=== PATIENT | female | born 1970 | race Hispanic/Latino ===

== ENCOUNTER 2024-10-05 12:08 | Inpatient (IN) | payer OTHER ==
[~2024-10-05] VITALS: Ht 165.1 cm; Wt 107.6 kg
[2024-10-05] MEDS: metoPROLOL tartRATE 1 MG/ML 5ML VIAL IV ONE ×3 (13:30→14:02)
[2024-10-05] MEDS ORDERED: metoPROLOL tartRATE 1 MG/ML 5ML VIAL IV ONE (13:49)
--- NOTE | 2024-10-05 15:25 | ERN ---
General Chief Complaint: Palpitations Stated Complaint: PALPITATIONS, AFIB Time Seen by MD: 15:20 History of Present Illness Initial Comments 52-year-old female who presents for atrial fibrillation and palpitations. Patient reports for the last few years he was had episodes of on and off atrial fibrillation. It usually lasts a day or so. She reports that she went to bed last night and normal state of health. Throughout the night and this morning she was having episodes of palpitations, and she does have a monitor that is showing episodes of atrial fibrillation. Rate is ranging from the 120s to 150s according to the patient. She denies any dizziness or chest pain. Patient takes metoprolol tartrate 50 mg b.i.d. as well as 81 mg of aspirin daily. She sees Dr. Venegas. She denies any other symptoms. Allergies: Coded Allergies: acetaminophen (Unverified Allergy, Unknown, 10/05/24) hydrocodone (Unverified Allergy, Unknown, 10/05/24) morphine (Unverified Allergy, Unknown, 10/05/24) oxycodone (Unverified Allergy, Unknown, 10/05/24) Past Medical History Past Medical History: A-Fib, Heart Disease, Hypertension Medical History Other: ULCERATIVE COLITIS Past Surgical History: Hysterectomy, Surgical History Other: HERNIA ROS Dictation CONSTITUTIONAL: No chills, no fever, no weakness, no diaphoresis, no malaise. HEAD/FACE: No signs of trauma. EENT: No eye pain, no blurred vision, no tearing, no double vision, no ear pain, no ear discharge, no nose pain, no nasal congestion, no throat pain, no throat swelling, no mouth pain. RESPIRATORY: No cough, no orthopnea, no SOB, no stridor, no wheezing. CARDIOVASCULAR: Palpitations GASTROINTESTINAL/ABDOMINAL: No abdominal pain, no constipation, no diarrhea, no nausea, no vomiting. GENITOURINARY: No abnormal discharge, no dysuria, no frequent urination, no hematuria. No complaints of pain in the genitals. MUSCULOSKELETAL: No back pain, no gout, no joint pain, no joint swelling, no muscle pain, no muscle stiffness, no neck pain. INTEGUMENTARY: No change in color, no change in hair/nails, no dryness, no lesion, no lumps, no rash. NEUROLOGICAL/PSYCH: No anxiety, not depressed, no emotional problem, no headache, no numbness, no pre-existing deficit, no history of seizures, no tremors, no weakness. HEMATOLOGIC/LYMPHATIC: Not anemic, no history of blood clots, no apparent bleeding, no bruising, glands not swollen. All Systems Negative, Except as Noted. Physical Exam Physical Exam Dictation VITAL SIGNS: Reviewed. GENERAL APPEARANCE: Alert, oriented x3, no acute distress, obese. HEAD AND FACE: Non-traumatic. EYES: PERRL, pink conjunctivas, eyelid no trauma, anterior chamber clear. EARS: Pinnas intact and no signs of trauma or erythema. Ear canals clear and no discharge. TMs no erythema. NOSE: No discharge, no bleeding. OROPHARYNX: Mouth normal, teeth no caries, tongue pink. Pharynx clear, no erythema. Tonsils no exudates, no abscesses noted. Mucous membrane moist. NECK: Supple, non-tender, no thyromegaly, no masses, no JVD, no bruits. BREAST: Deferred. CHEST: No tenderness, no crepitus, no paradoxical movement, no retractions. LUNGS: Clear, well-ventilated, symmetric, no rales, no wheezing, no rhonchi, no stridor, good breath sounds bilaterally. HEART: Regular rate, regular rhythm, no murmur, no gallops. VASCULAR: No peripheral edema. ABDOMEN: Soft, positive bowel sounds, nondistended, no guarding, nontender, no rebound, no masses no hepatomegaly, no splenomegaly, no Burt's sign, no h ernias. RECTAL: Deferred. GENITAL: Deferred. NEUROLOGICAL: Normal speech, gross motor function intact, gross sensory functi on intact. MUSCULOSKELETAL: Neck nontender, full range of motion, back nontender, full range of motion. EXTREMITIES: Nontender, full range of motion. SKIN: Color pink, dry, no turgor, no rash, no lacerations, no abrasions, no contusions. LYMPHATICS: Deferred. MDM CC: Palpitations and atrial fibrillation per her heart monitor Historian: Patient Comorbidities: paroxysmal atrial fibrillation, hypertension, ulcerative colitis Limitations by social determinants of health: None Differential diagnosis: Electrolyte abnormality, arrhythmia, atrial fibrillation, ACS, other. Vital signs: Tachycardia otherwise blood pressure and vital signs are stable and remained stable in the ER. EKG (independently interpreted by me ): Atrial fibrillation, rate 122, normal axis, good R-wave progression, no STEMI. Labs (independently ordered and interpreted by me ): CBC is normal. BNP normal. CK normal. UA normal. CXR (independently interpreted by me): No cardiomegaly no pleural effusions no focal infiltrates. Treatment in ED: Lopressor 5 mg x 3 IV. Re-evaluation: Rate is now controlled, it is in the 90s, but she remains in atrial fibrillation. Repeat EKG shows atrial fibrillation rate of 99 with a normal axis and good R-wave progression. Since the patient remains in atrial fibrillation, I recommend admission for Cardiology consultation. She has been in AFib for less than 12 hours maybe a good candidate to convert out of atrial fibrillation. Consultation: hospitalist for admission ED Course Vital Signs Date Time Temp Pulse Resp B/P (MAP) Pulse Ox O2 Delivery O2 Flow Rate FiO2 10/05/24 15:15 99.0 80 16 137/101 97 Room Air 0 DX & DISP Disposition: Inpatient Departure Impression: Primary Impression: Atrial fibrillation with RVR Critical Time: 30 minutes (Critical Care Procedure NoteAuthorized and Performed by: meTotal critical care time: Approximately 36 minutesDue to a high probability of clinically significant, life threatening deterioration, the patient required my highest level of preparedness to intervene emergently and I personally spent this critical care time directly and personally managing the patient. This critical care time included obtaining a history; examining the patient; pulse oximetry; ordering and review of studies; arranging urgent treatment with development of a management plan; evaluation of patient's response to treatment; frequent reassessment; and, discussions with other providers.This critical care time was performed to assess and manage the high probability of imminent, life-threatening deterioration that could result in multi-organ failure. It was exclusive of separately billable procedures and treating other patients and teaching time.Please see MDM section and the rest of the note for further information on patient assessment and treatment.) Condition: Stable Referrals: SELF,REFERRAL (PCP) IVANA SERRATO DO Oct 05, 2024 15:25
--- NOTE | 2024-10-05 16:30 | NUR ---
REPORT RECEIVED FROM SERAFIN MENDEZ. PT JUST PLACED IN MY ED BED 12
--- NOTE | 2024-10-05 16:39 | NUR ---
LIAT JUST IN TO SEE THE PT.
[2024-10-05 16:52] LABS: APPEARANCE,URINE CLEAR (CLEAR); COLOR,URINE LIGHT-YELLOW (YELLOW)
[2024-10-05 16:53] LABS: BILIRUBIN,URINE NEGATIVE (NEGATIVE); GLUCOSE, URINE (UA) NEGATIVE (NEGATIVE); KETONES,URINE NEGATIVE (NEGATIVE); OCCULT BLOOD,URINE MODERATE (NEGATIVE); PROTEIN,URINE 20 mg/dL (NEGATIVE)
[2024-10-05 16:54] LABS: LEUKOCYTE ESTERASE ,URINE NEGATIVE Leu/uL (NEGATIVE); NITRATE,URINE NEGATIVE (NEGATIVE); UROBILINOGEN,URINE 0.2 mg/dL (0.2-1.0)
[2024-10-05 16:55] LABS: ADD UA MICROSCOPIC YES; WBC,URINE 0-1 /HPF (0-1)
[2024-10-05 16:56] LABS: SQUAMOUS EPITHELIAL CELL,UR Rare /HPF (0-2)
[2024-10-05 17:01] LABS: HEMATOCRIT 45.7 % (36-48); LYMPHOCYTES % (AUTO) 21.5 % (21.0-51.0); MEAN CORPUSCULAR HEMOGLOBIN 30.3 pg (27.0-33.0); MEAN CORPUSCULAR HGB CONC 34.6 g/dL (32.0-36.0); MEAN CORPUSCULAR VOLUME 87.5 fL (79-99); MONOCYTES % (AUTO) 5.8 % (3.0-13.0); NEUTROPHILS % (AUTO) 71.1 % (40.0-77.0); PLATELET COUNT (AUTO) 249 K/uL (130-400); RED BLOOD CELL COUNT(AUTO) 5.22 MIL/uL (4.00-5.50); RED CELL DISTRIBUTION WIDTH 12.8 % (11.0-15.5); WHITE BLOOD COUNT (AUTO) 9.6 K/uL (4.8-10.8)
[2024-10-05 17:02] LABS: B-TYPE NATRIURETIC PEPTIDE 53 pg/mL (0-100); BASOPHILS # (AUTO) 0.02 K/uL (0.00-0.20); BASOPHILS % (AUTO) 0.2 % (0.0-5.0); EOSINOPHILS # (AUTO) 0.09 K/uL (0.00-0.70); EOSINOPHILS % (AUTO) 0.9 % (0.0-8.0); IMMATURE GRANULOCYTE ABSOLUTE 0.05 K/uL (0-1); LYMPHOCYTES # (AUTO) 2.1 K/uL (1.0-4.8); MONOCYTES # (AUTO) 0.6 K/uL (0.1-1.0); NEUTROPHILS # (AUTO) 6.8 K/uL (1.8-7.7)
[2024-10-05 17:04] LABS: CREATININE 0.8 mg/dL (0.5-1.0)
--- NOTE | 2024-10-05 17:05 | HP ---
[facility] PHYS[facility] Date of Service: Oct 05, 2024 Time of Service: 16:55 HISTORY OF PRESENT ILLNESS: 53-year-old female with past medical history of atrial fibrillation, hypertension, CAD, ulcerative colitis, obesity, who presented to [facility] ED earlier today with complaints of palpitations. Patient reports earlier this morning she began to experience palpitations which progressively worsened throughout the mid morning hours. Patient states she has had similar symptoms in the past, having being diagnosed with AFib RVR. Patient reports being compliant with her home medications which include Lopressor, and aspirin. She is followed in the outpatient setting closely by her primary tongue and groove machine setter Dr. Venegas. Her last 2D echo was performed several years ago, does not recall results. Patient denied nausea vomiting fever, chills, diaphoresis, diarrhea or dysuria. Due to persistence in symptoms she decided to come to the hospital for further evaluation. Upon arrival to ED she was noted afebrile, blood pressure 137/101, heart rate 130, respirations 20, O2 saturation 97% on room air. While in the ED patient received IV Lopressor5 mg x3 doses. Follow up vitals blood pressure 129/93, heart rate 94, respirations , O2 saturation 96% on room air. Labs were requested from ED however are pending at this time. ED physician requesting patient be admitted to the hospital for further evaluation and management. REVIEW OF SYSTEMS CONSTITUTIONAL: Denies fevers, chills, or night sweats. No unintentional weight loss reported. NEUROLOGICAL: Denies headache, amaurosis fugax, motor weakness, sensory deficit, vertigo/spinning sensation, gait abnormalities, or tremors. ENT: No hearing loss, otalgia, otorrhea, rhinitis, rhinorrhea, hoarseness, or sore throat. CARDIOVASCULAR: As mentioned in HPI PULMONARY: Denies any shortness of breath, cough, phlegm/sputum, hemoptysis, pleuritic chest pain. SLEEP: Denies morning headaches, daytime somnolence or napping. Denies difficulty falling asleep, staying asleep, waking from sleep. Denies knowledge of snoring. GASTROINTESTINAL: Denies any type of dysphagia to either liquids or solids. Denies nausea, vomiting, pyrosis, early satiety, abdominal pain, diarrhea, constipation, or changes in stool consistency or caliber. Denies coffee-ground emesis, hematemesis, hematochezia, or melanotic stools. GENITOURINARY: Denies frequency, urgency, nocturia, hematuria or incontinence (Storage/Irritative symptoms.) Low urinary stream, straining to void, urinary intermittency or hesitancy, splitting of the voiding stream, terminal dribbling. ENDOCRINOLOGIC: Denies polyuria, polydipsia, polyphagia or heat/cold intolerances. HEMATOLOGIC: Denies thrombophilia/previous clots, or coagulopathy/bleeding disorders. ONCOLOGIC: Denies personal history of malignancy. DERMATOLOGIC: Denies rashes or pruritus. PSYCHIATRIC: Denies any suicidal or homicidal ideation. Denies hallucinations. PAST MEDICAL HISTORY: As mentioned in HPI PAST SURGICAL HISTORY: Hysterectomy Knee surgery PAST SOCIAL HISTORY: No Tobacco no alcohol no substance abuse FAMILY HISTORY: Noncontributory Coded Allergies: acetaminophen (Unverified Allergy, Unknown, 10/05/24) hydrocodone (Unverified Allergy, Unknown, 10/05/24) morphine (Unverified Allergy, Unknown, 10/05/24) oxycodone (Unverified Allergy, Unknown, 10/05/24) PHYSICAL EXAM GENERAL APPEARANCE: The patient is awake, alert, and oriented, in no acute cardiopulmonary distress. NEUROLOGICAL: Cranial nerves II-XII grossly intact. Motor is 5/5 in bilateral upper and lower extremities proximal to distal. No sensory deficits. HEENT: Face is symmetric. Pupils are equal and reactive. Extraocular movements are intact. NECK: Supple. No JVD. No thyromegaly. No submental, submandibular, pre-/postauricular, occipital or supraclavicular lymphadenopathy. CHEST: Normal chest expansion. No Telemetry. LUNGS: Absence of any rales, rhonchi or any wheezing. CARDIOVASCULAR: Regular. S1 and S2 normal. No appreciable rubs, murmurs or gallops. ABDOMEN: Soft, nontender, and nondistended. There is no rebound, voluntary guarding, or rigidity. : Deferred. No Thomas. EXTREMITIES: Non-edematous and not cyanotic. No clubbing. Good capillary refill. SKIN: No skin breakdown. Vital Sign (Last 24 Hours) 10/05/24 10/05/24 15:00 15:15 Temp 99.0 Pulse 80 Resp 16 B/P (MAP) 137/101 Pulse Ox 97 O2 Delivery Room Air O2 Flow Rate 0 FiO2 21 LABS: Laboratory: Test 10/05/24 12:24 Range/Units Urine Color LIGHT-YELLOW YELLOW Urine Appearance CLEAR CLEAR Urine pH 6.0 5.0-8.0 Urine Specific Marshall 0.014 1.001-1.031 Urine Protein 20 H NEGATIVE mg/dL Urine Glucose (UA) NEGATIVE NEGATIVE mg/dL Urine Ketones NEGATIVE NEGATIVE mg/dL Urine Occult Blood MODERATE NEGATIVE Urine Nitrate NEGATIVE NEGATIVE Urine Bilirubin NEGATIVE NEGATIVE mg/dL Urine Urobilinogen 0.2 0.2-1.0 mg/dL Urine Leukocyte Esterase NEGATIVE NEGATIVE Perri/uL DIAGNOSTICS / RADIOLOGY: [ ] ASSESSMENT: AFib RVR POA Essential hypertension CAD Obesity PLAN: Admit patient to PCCU under hospitalist team Obtain home medications, reconcile and resume accordingly Start Lopressor 25 mg p.o. b.i.d. Start ASA 81 mg daily Obtain 2D echo Request Cardiology consult Labs: CBC, CMP, troponin, BNP Obtain CXR Lovenox for DVT prophylaxis Pepcid for GI prophylaxis P.r.n. medications for fever, pain, nausea, constipation Follow-up a.m. labs Further orders per hospital course ADVANCED CARE PLANNING 1. Which of the following were discussed? Hospice Care - No Therapeutic options - Yes Advance Directives - Yes Other discussions - 2. Discussed with who? The patient 3. Voluntary nature of this service was explained to the patient? Yes 4. Amount of time spent - ___ 20 minutes ____ 5. Reviewed by Physician? (if this service was performed by NPP) Yes FINN JOSUE Oct 05, 2024 17:05
--- NOTE | 2024-10-05 17:11 | NUR ---
PT JUST NOW PROVIDED HER PM MEAL
--- NOTE | 2024-10-05 17:20 | NUR ---
BED ASSIGNMENT: BED 408 JUST NOW ASSIGNED BY VICK HARVEY RN
[2024-10-05] MEDS ORDERED: guaiFENesin-DM 200/20MG 10ML PO PRN (17:30)
[2024-10-05] MEDS ORDERED: DiphenhydrAMINE HCL 25 MG CAPSULE PO PRN (17:30)
[2024-10-05] MEDS ORDERED: MAG/ALUM/SIMETH 30 ML UDCUP PO PRN (17:30)
[2024-10-05] MEDS ORDERED: NITROGLYCERIN 0.4 MG SL TAB SL PRN (17:30)
[2024-10-05] MEDS ORDERED: LACTULOSE 20 GM/30 ML UDCUP PO PRN (17:30)
[2024-10-05] MEDS ORDERED: hydrALAZine 20MG/ML VIAL IV PRN (17:30)
[2024-10-05] MEDS ORDERED: ondanSETRON 4MG INJ IV PRN (17:30)
--- NOTE | 2024-10-05 18:45 | NUR ---
CARDIOLOGY CONSTULT: JUST SPOKE TO DR DUKES
--- NOTE | 2024-10-05 19:14 | NUR ---
REPORT ENDORSED TO BEE MENDEZ
--- NOTE | 2024-10-05 19:14 | NUR ---
CARDIOLOGY CONSULT: DR DUKES WAS IN TO SEE THE PT
--- NOTE | 2024-10-05 19:18 | CONS ---
[facility] Cardiology Consultation Note Cardiology consultation Dec 05 2024 Chief complaint: This is a 53-year-old female who presents with palpitations and was found to be in recurrent atrial fibrillation with rapid rate 130 per minute. History of present illness: The patient has a history of paroxysmal atrial fibrillation with diagnosed 2020. She has a CHADS-VASc score of one for being female and has a relative contraindication to anticoagulation given a history of ulcerative colitis. She has been treated with metoprolol tartrate 50 mg b.i.d. for several years. The we recently switched her over to metoprolol succinate 100 mg daily approximately one week ago. Has been compliant with medications. Has been no intercurrent infection. This morning she awoke with palpitations that persisted all day. On arrival she was in AFib at a rate of 130 per minute. She received three doses of IV Lopressor but remained in atrial fibrillation. Rate dropped to about 110 per minute. Blood pressure is 130/70. Past medical history: The patient has a history ulcerative colitis paroxysmal atrial fibrillation . No history of previous myocardial infarction CVAs ulcers phlebitis thyroid disease kidney or liver disease. Surgical history: Previous orbital surgery complete hysterectomy right knee meniscal surgery and inguinal hernia. Social history: She is a nonsmoker nondrinker Family history: There was no family history of early atherosclerotic heart d isease. Medications: Home she has been taking metoprolol succinate 100 mg daily and Asacol for her ulcerative colitis. Physical exam: Pressure is currently running 130/70. Heart rate is 110 per minute. Pulses irregular. There was no elevation of the jugular venous pressure no bruits no murmurs appreciable. S1 normal S2 physiologically split. Abdomen is soft extremities show no edema she is alert and oriented. Laboratory studies: White count is 9.6 hemoglobin 15.8 Platelet count [id number]. Potassium 4.0 BUN15 creatinine 0.8. Electrocardiogram: Atrial fibrillation with a rapid ventricular response Chest x-ray: Normal-sized heart no infiltrates or effusions pulmonary vascular pattern appears normal there was no pneumothorax. Trachea is midline. Assessment: 1. Paroxysmal atrial fibrillation with rapid ventricular response. As noted the patient was recently switched from metoprolol tartrate 50 mg b.i.d. to metoprolol succinate 100 mg daily. This may have been a contributing factor of the longer-acting metoprolol has not been sufficient to last24 hours. Her last episode of atrial fibrillation sustained was then 2020. She has a CHADS-VASc score of one for female status 2. Ulcerative colitis with a relative contraindication anticoagulation Plan: Plan is to initiate amiodarone therapy to converted back to sinus rhythm. Tomorrow we will have a discussion whether to go back to metoprolol tartrate 50 mg b.i.d. or start an antiarrhythmic drug such as sotalol or dronedarone. SUYAPA DUKES MD Oct 05, 2024 19:18
[2024-10-05] MEDS: AMIOdarone 900MG VIAL 150 MG in DEXTROSE 5%-WATER 100 ML IV ONE (19:41)
[2024-10-05] MEDS: AMIOdarone 900MG VIAL 360 MG in DEXTROSE 5%-WATER 200 ML IV SCH (20:03)
[2024-10-05] MEDS ORDERED: metoPROLOL tartRATE 25 MG TAB PO SCH (21:00)
[2024-10-05] MEDS: FAMOTIDINE 20MG VIAL IV SCH (21:42)
[2024-10-05 22:49] VITALS: BP 143/89; PULSE 101; RESP 18; TEMP 98.4
[2024-10-05] MEDS ORDERED: ASPI-1005 PO (23:22)
[2024-10-05] MEDS ORDERED: METO50TA18 PO (23:22)
[2024-10-06] VITALS (8 sets, daily range): BP systolic 114–144; BP diastolic 70–98; PULSE 63–101; RESP 16–18; TEMP 97.6–98.4; O2SAT 96
[2024-10-06] MEDS: AMIOdarone 900MG VIAL 540 MG in DEXTROSE 5%-WATER 300 ML IV SCH (02:54)
--- NOTE | 2024-10-06 07:33 | PN ---
[facility] Cardiology Progress Note CARDIOLOGY PROGRESS NOTE OCTOBER 06, 2024 Problems: 1. Paroxysmal atrial fibrillation with rapid ventricular response with CHADS- VASc score of one for female gender 2. Ulcerative colitis with a relative contraindication anticoagulation Blood pressure this morning is 120/78 heart rate is 100 per minute the patient is afebrile. She is receiving amiodarone protocol aspirin famotidine. Recently the patient was switched over to metoprolol succinate but she informs me today that she would not actually started on the new medicine and was still on metoprolol tartrate 50 mg b.i.d. which he had taken for years. Last sustained episode of atrial fibrillation was in 2020. On set of her symptoms was 24 hours ago. We will add back her metoprolol tartrate and continue with IV amiodarone. If she does not convert in the next 24 hours we will consider transesophageal guided cardioversion. At this point we will increase her Lovenox to full dose over the next 24 hours in case cardioversion is required. SUYAPA DUKES MD Oct 06, 2024 07:33
[2024-10-06] MEDS: ENOXAPARIN SODIUM 120 MG/0.8ML SQ ONE (08:00)
[2024-10-06] MEDS ORDERED: ENOXAPARIN SODIUM 40 MG/0.4 ML SYRINGE SQ SCH (09:00)
--- NOTE | 2024-10-06 09:04 | PN ---
[facility] PROGRESS NOTE Date of Service: Oct 06, 2024 Time of Service: 09:01 SUBJECTIVE: [ ] 10/06 patient has been seen and examined at bedside, case discussed with the RN, no acute events overnight. During my visit the patient remains comfortably in bed, alert oriented x3, she denies headache, no dizziness, no chest pain, shortness shortness for breath, no palpitations, no nausea, no vomiting, no abdominal pain. She is currently on amiodarone drip. REVIEW OF SYSTEMS CONSTITUTIONAL: Denies fevers, chills, or night sweats. No unintentional weight loss reported. NEUROLOGICAL: Denies headache, amaurosis fugax, motor weakness, sensory deficit, vertigo/spinning sensation, gait abnormalities, or tremors. ENT: No hearing loss, otalgia, otorrhea, rhinitis, rhinorrhea, hoarseness, or sore throat. CARDIOVASCULAR: As mentioned in HPI PULMONARY: Denies any shortness of breath, cough, phlegm/sputum, hemoptysis, pleuritic chest pain. SLEEP: Denies morning headaches, daytime somnolence or napping. Denies difficulty falling asleep, staying asleep, waking from sleep. Denies knowledge of snoring. GASTROINTESTINAL: Denies any type of dysphagia to either liquids or solids. Denies nausea, vomiting, pyrosis, early satiety, abdominal pain, diarrhea, constipation, or changes in stool consistency or caliber. Denies coffee-ground emesis, hematemesis, hematochezia, or melanotic stools. GENITOURINARY: Denies frequency, urgency, nocturia, hematuria or incontinence ( Storage/Irritative symptoms.) Low urinary stream, straining to void, urinary intermittency or hesitancy, splitting of the voiding stream, terminal dribbling. ENDOCRINOLOGIC: Denies polyuria, polydipsia, polyphagia or heat/cold intolerances. HEMATOLOGIC: Denies thrombophilia/previous clots, or coagulopathy/bleeding disorders. ONCOLOGIC: Denies personal history of malignancy. DERMATOLOGIC: Denies rashes or pruritus. PSYCHIATRIC: Denies any suicidal or homicidal ideation. Denies hallucinations. PHYSICAL EXAM GENERAL APPEARANCE: The patient is awake, alert, and oriented, in no acute cardiopulmonary distress. NEUROLOGICAL: Cranial nerves II-XII grossly intact. Motor is 5/5 in bilateral upper and lower extremities proximal to distal. No sensory deficits. HEENT: Face is symmetric. Pupils are equal and reactive. Extraocular movements are intact. NECK: Supple. No JVD. No thyromegaly. No submental, submandibular, pre- /postauricular, occipital or supraclavicular lymphadenopathy. CHEST: Normal chest expansion. No Telemetry. LUNGS: Absence of any rales, rhonchi or any wheezing. CARDIOVASCULAR: Regular. S1 and S2 normal. No appreciable rubs, murmurs or gallops. ABDOMEN: Soft, nontender, and nondistended. There is no rebound, voluntary guarding, or rigidity. : Deferred. No Thomas. EXTREMITIES: Non-edematous and not cyanotic. No clubbing. Good capillary refill. SKIN: No skin breakdown. Vital Signs (last 8hr) Date Time Temp Pulse Resp B/P (MAP) Pulse Ox O2 Delivery O2 Flow Rate FiO2 10/06/24 04:32 98.4 101 18 121/78 98 Room Air LABS: Laboratory: Test 10/05/24 12:24 Range/Units White Blood Count 9.6 4.8-10.8 K/uL Red Blood Count 5.22 4.00-5.50 MIL/uL Hemoglobin 15.8 12.0-16.0 g/dL Hematocrit 45.7 36-48 % Mean Corpuscular Volume 87.5 79-99 fL Mean Corpuscular Hemoglobin 30.3 27.0-33.0 pg Mean Corpuscular Hemoglobin Concent 34.6 32.0-36.0 g/dL Red Cell Distribution Width 12.8 11.0-15.5 % Platelet Count 249 130-400 K/uL Mean Platelet Volume 8.4 7.5-10.5 fL Immature Granulocyte % (Auto) 0.5 0-1 % Neutrophils (%) (Auto) 71.1 40.0-77.0 % Lymphocytes (%) (Auto) 21.5 21.0-51.0 % Monocytes (%) (Auto) 5.8 3.0-13.0 % Eosinophils (%) (Auto) 0.9 0.0-8.0 % Basophils (%) (Auto) 0.2 0.0-5.0 % Neutrophils # (Auto) 6.8 1.8-7.7 K/uL Lymphocytes # (Auto) 2.1 1.0-4.8 K/uL Monocytes # (Auto) 0.6 0.1-1.0 K/uL Eosinophils # (Auto) 0.09 0.00-0.70 K/uL Basophils # (Auto) 0.02 0.00-0.20 K/uL Absolute Immature Granulocyte (auto 0.05 0-1 K/uL Nucleated Red Blood Cells 0.0 0.0-0.19 % Urine Color LIGHT-YELLOW YELLOW Urine Appearance CLEAR CLEAR Urine pH 6.0 5.0-8.0 Urine Specific [place] 0.014 1.001-1.031 Urine Protein 20 H NEGATIVE mg/dL Urine Glucose (UA) NEGATIVE NEGATIVE mg/dL Urine Ketones NEGATIVE NEGATIVE mg/dL Urine Occult Blood MODERATE NEGATIVE Urine Nitrate NEGATIVE NEGATIVE Urine Bilirubin NEGATIVE NEGATIVE mg/dL Urine Urobilinogen 0.2 0.2-1.0 mg/dL Urine Leukocyte Esterase NEGATIVE NEGATIVE Perri/uL Urine RBC 6-10 H 0-1 /HPF Urine WBC 0-1 0-1 /HPF Urine Squamous Epithelial Cells Rare 0-2 /HPF Urine Bacteria NONE None Seen /HPF Sodium Level 136 136-145 mmol/L Potassium Level 4.0 3.5-5.1 mmol/L Chloride Level 98 L 101-111 mmol/L Carbon Dioxide Level 31 21-32 mmol/L Blood Urea Nitrogen 15 7-18 mg/dL Creatinine 0.8 0.5-1.0 mg/dL Glomerular Filtration Rate Calc 87 >90 mL/min Random Glucose 89 70-105 mg/dL Total Calcium 9.7 8.5-10.1 mg/dL Total Creatine Kinase 113 21-232 U/L Troponin I High Sensitivity < 4 L 4-50 ng/L B-Type Natriuretic Peptide 53 0-100 pg/mL Current Medications Medications (Trade) Dose Ordered Sig/Milagros Route PRN Reason Start Time Stop Time Status Last Admin Dose Admin Al Hydroxide/Mg Hydroxide (MAALox PLUS 30ML) 30 ml Q6H PRN PO INDIGESTION 10/05/24 17:30 11/04/24 17:29 Amiodarone HCl 360 mg/Dextrose 207.2 ml @ 33.3 mls/hr AD IV 10/05/24 19:30 10/06/24 08:13 DC 10/05/24 20:03 33.3 MLS/HR Amiodarone HCl 540 mg/Dextrose 310.8 ml @ 16.7 mls/hr [id number] IV 10/05/24 19:30 11/04/24 19:29 10/06/24 02:54 16.7 MLS/HR Aspirin (Aspirin 81mg Ec Tab) 81 mg DAILY PO 10/06/24 09:00 11/05/24 08:59 Diphenhydramine HCl (BENAdryl CAP) 25 mg Q4H PRN PO MILD ITCHING/RASH 10/05/24 17:30 11/04/24 17:29 Enoxaparin Sodium (Lovenox) 40 mg DAILY SQ 10/06/24 09:00 10/06/24 07:35 DC Famotidine (Pepcid 20mg Vial) 20 mg BID IV 10/05/24 21:00 11/04/24 20:59 10/05/24 21:42 20 MG Guaifenesin/ Dextromethorphan (RobiTUSSin DM 200/20MG 10ML) 10 ml Q4H PRN PO COUGH 10/05/24 17:30 11/04/24 17:29 Hydralazine HCl (APRESOLine 20MG INJ) 10 mg Q6H PRN IV For:SBP above 160;DBP above 90 10/05/24 17:30 11/04/24 17:29 Lactulose (Constulose 20gm/ 30ml Udcup) 20 gm BID PRN PO CONSTIPATION 10/05/24 17:30 11/04/24 17:29 Metoprolol Tartrate (loprESSOR) 25 mg BID PO 10/05/24 21:00 10/05/24 19:21 DC Metoprolol Tartrate (loprESSOR) 50 mg BID PO 10/06/24 09:00 11/05/24 08:59 Nitroglycerin (Nitrostat) 0.4 mg PROTOCOL PRN SL CHEST PAIN 10/05/24 17:30 11/04/24 17:29 Ondansetron HCl (zoFRAN 4MG INJ) 4 mg Q6H PRN IV NAUSEA/VOMITING 10/05/24 17:30 11/04/24 17:29 DIAGNOSTICS / RADIOLOGY: [ ] ASSESSMENT: Atrial fibrillation with a RVR, POA Essential hypertension CAD Obesity PLAN: Patient remains admitted to the PCU Continue pvc monitor Continue the patient on amiodarone IV. Cardiology input noted and appreciated, metoprolol tartrate added to current management. Patient started on full-dose Lovenox in the event cardioversion is required. NEURO: Minimize central acting medications as possible. Fall Precautions. Well lighted room through the day and minimize interruptions through the night to prevent acute delirium. PULMONARY: Supplemental 02 as needed BiPAP as necessary, for respiratory distress Titrate Fio2 to keep Spo2 > or = 90% DuoNebs and CPT as needed IS hourly while awake for pulmonary hygiene prn Out of bed to chair as tolerated Maintain aspiration precautions at all times CARDIOVASCULAR: Follow hemodynamics. Vital signs per facility protocol GI & NUTRITION: Continue nutritional support Aspirations precautions Prokinetic agents and laxatives as needed KIDNEYS & ELECTROLYTES: Strict monitoring of intake and output Daily weights Avoid nephrotoxic agents Monitor electrolytes and replace as needed Goal urine output of 30mL/hr or 0.5mL/kg/hr Medications to be dosed according to renal function. Avoid contrast if possible ENDOCRINE: Maintain blood glucose between 100-180 at all times. Insulin sliding scale for blood glucose management Hypoglycemia and hyperglycemia protocol in place INFECTIOUS DISEASE: Trend temperature, WBC and procalcitonin level Follow cultures, deescalate antibiotics as soon as possible. Panculture if new onset fever HEMATOLOGY & COAGULATION: Monitor H&H. Keep Hgb > 7 Transfuse 1 unit of PRBC for Hgb < 7 Transfuse 1 pack of platelets of platelets < 20, 000 Watch for any signs and symptoms of bleeding SKIN: Pressure ulcer prevention per facility protocol Specialty mattress as needed ORTHO/REHAB Continue PT/OT PRN: MEDICATIONS Tylenol 650 mg po every 4 hrs for fever zofran 4 mg IV every 6 hrs for n/v Hydralazine 5 mg IV every 4 hrs systolic pressure > 160 bowel regiment: lactulose 20 gm PO BID PRN constipation Supportive measures: Continue GI and DVT prophylaxis Disposition: Remains admitted to the PCU. Pending improvement in clinical condition All questions answered time spent: > 35 min NILESH MARTINEZ MD Oct 06, 2024 09:04
--- NOTE | 2024-10-06 09:11 | HMCIMG ---
CHEST 1VW HISTORY: Palpitations COMPARISON: None FINDINGS: A frontal projection of the chest was obtained. No acute pulmonary infiltrates is seen. The heart is borderline enlarged. Degenerative changes are seen. Tortuosity of the aorta is seen. IMPRESSION: 1. No acute pulmonary infiltrate is seen.
--- NOTE | 2024-10-06 09:47 | EKG ---
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
--- NOTE | 2024-10-06 11:36 | NUR ---
[facility] Patient states lives with Brandan Javier, Spouse [phone] in a house with a walk in shower. States she works remotely from home, remains independent and drives self. States able to complete ADL's on her own. Denies medical devices. Denies home health services, home care provider or dialysis. PCP - None per patient Pharmacy - [facility]. Upon discharge, Zarina Candelaria, Friend [phone]. At this time, is not aware of additional medical needs. Addendum: 10/06/24 at 1140 by BARBARA HUSSEIN RN CM Amended: Links added.
[2024-10-06] MEDS: metoPROLOL tartRATE 50 MG TAB PO SCH (11:37)
[2024-10-06] MEDS: ASPIRIN 81 MG EC TAB PO SCH (11:37)
[2024-10-06] MEDS ORDERED: MESA800T9 PO (11:49)
[2024-10-06] MEDS: ENOXAPARIN SODIUM 120 MG/0.8ML SQ SCH (11:50)
[2024-10-07] VITALS (10 sets, daily range): BP systolic 119–147; BP diastolic 70–105; PULSE 65–104; RESP 17–18; TEMP 97.4–98.9; O2SAT 96
[2024-10-07 03:47] LABS: HEMATOCRIT 46.6 % (36-48); MEAN CORPUSCULAR HEMOGLOBIN 30.4 pg (27.0-33.0); MEAN CORPUSCULAR HGB CONC 34.5 g/dL (32.0-36.0); MEAN CORPUSCULAR VOLUME 88.1 fL (79-99); RED BLOOD CELL COUNT(AUTO) 5.29 MIL/uL (4.00-5.50); RED CELL DISTRIBUTION WIDTH 12.9 % (11.0-15.5); WHITE BLOOD COUNT (AUTO) 10.9 K/uL (4.8-10.8)
[2024-10-07 04:03] LABS: INR 1.03 (0.85-1.15); PROTHROMBIN TIME 10.9 SEC (9.6-11.6)
[2024-10-07 04:05] LABS: ALBUMIN 4.3 g/dL (3.5-5.0); BILIRUBIN,TOTAL 0.9 mg/dL (0.2-1.0); MAGNESIUM 2.1 mg/dL (1.80-2.40); POTASSIUM 3.6 mmol/L (3.5-5.1); TOTAL PROTEIN, SERUM 7.5 g/dL (6.0-8.3)
--- NOTE | 2024-10-07 06:58 | PN ---
[facility] Cardiology Progress Note CARDIOLOGY PROGRESS NOTE OCTOBER 07, 2024 Problems: 1. Paroxysmal atrial fibrillation with rapid ventricular response with CHADS- VASc score of one for female gender 2. Ulcerative colitis with a relative contraindication anticoagulation The patient remains in atrial fibrillation with a heart rate in the 90s on IV amiodarone and metoprolol. She has been anticoagulated with Lovenox. She has been in atrial fibrillation for less than 48 hours. Last sustained episode of atrial fibrillation was in 2020. We have talked about loading her with oral amiodarone and discharged home for 4-6 weeks and cardioversion at that time if she is not back in sinus rhythm. She states she is symptomatic with palpitations and rapid heartbeat when she gets up to walk and would prefer to go ahead with a cardioversion today. Risks and benefits have been fully reviewed. Orders has been placed. SUYAPA DUKES MD Oct 07, 2024 06:58
--- NOTE | 2024-10-07 08:00 | NUR ---
CARDIOVERSION [address] DUKES AT BEDSIDE 0801 AM: TIME OUT FOR CARDIOVERSION VS PRE CARDIOVERSION- BP 147/105, HR 87 AFIB, 97% ON 2 LITERS 0802 AM: 2MG VERSED / 25 MCG FENTANYL ADMINISTERED 0806 AM: 1 MG VERSED ADMINISTERED 08 AM: DR DUKES CARDIOVERTED W/ 200J X 1 SHOCK ADMINISTERED 08 AM: EKG DONE- NORMAL SINUS RHYTHM Addendum: 10/07/24 at 1126 by BRANDON ESPINAL RN RN 0810 AM AMIODARONE SAMIA DISCONTINUED PER DR DUKES
--- NOTE | 2024-10-07 08:16 | PRN ---
DC cardioversion procedure note October 07, 2024 Preprocedure diagnosis atrial fibrillation Postprocedure diagnosis successful cardioversion to sinus rhythm After informed consent the patient received a total of 3 mg of Versed and 25 mcg of fentanyl administered in divided doses to achieve adequate level of conscious sedation. She had continuous O2 saturation monitoring noninvasive heart rate rhythm and blood pressure monitoring throughout the procedure. Vital signs remained stable. She received a single synchronized shock with 200 joules and was successfully converted back to sinus rhythm. Postprocedure orders have been given. Okay the patient is now responsive and moves all extremities on commands. Report dictated by SUYAPA Connelly MD, MD Oct 07, 2024 08:16
[2024-10-07] MEDS ORDERED: APIX5TAB PO (08:18)
[2024-10-07] MEDS ORDERED: AMIO200T68 PO (08:18)
[2024-10-07] MEDS: MIDAZOLAM HCL 1 MG/ML 2ML VIAL IVP ONE (08:20)
[2024-10-07] MEDS: FENTanyl CITRate PF 50 MCG/1 ML 2ML VIAL IVP ONE (08:20)
--- NOTE | 2024-10-07 09:01 | EKG ---
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1970 Requested By: SUYAPA DUKES Order Number: [id number] Reading MD: Rayo Ferraro Measurements Intervals [place] Rate: 83 P: -26 [place]: 114 QRS: 139 QRSD: 86 T: -36 QT: 342 QTc: 401 Interpretive Statements Normal sinus rhythm Low voltage QRS Left posterior fascicular block Cannot rule out Inferior infarct , age undetermined Compared to ECG 10/05/2024 14:52:55 Left posterior fascicular block now present Myocardial infarct finding now present Atrial fibrillation no longer present Electronically Signed On 10-07-2024 13:33:51 CDT by Rayo Ferraro Please click the below link to view image of tracing.
[2024-10-07] MEDS: AMIOdarone 200 MG TABLET PO SCH (09:11)
--- NOTE | 2024-10-07 10:39 | DS ---
Discharge Summary Hospital Course Summary: 53-year-old female with past medical history of atrial fibrillation, hypertension, CAD, ulcerative colitis, obesity, who presented to [facility] ED with complaints of palpitations. Patient stated she has had similar symptoms in the past, having being diagnosed with AFib RVR. Patient reportd being compliant with her home medications which include Lopressor, and aspirin. She is followed in the outpatient setting closely by her primary human resources executive assistant Dr. Venegas. In the ED she was noted afebrile, blood pressure 137/101, heart rate 130, res pirations 20, O2 saturation 97% on room air. While in the ED patient received IV Lopressor5 mg x3 doses. Patient admitted to the PCU, placed on telemetry monitoring, started on amiodarone IV drip. Patient evaluated by human resources executive assistant, patient placed on full-dose Lovenox, that it current cardioversion done 10/07/2024, tolerated well, converted back to sinus rhythm. At the time of my visit she is hemodynamically stable, back in sinus rhythm, no dizziness, no headache, no chest pain, no palpitations, no nausea, no vomiting, no abdominal pain Possible discharge home in the evening. 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 She had continuous O2 saturation monitoring noninvasive heart rate rhythm and blood pressure monitoring throughout the procedure. Vital signs remained stable. She received a single synchronized shock with 200 joules and was successfully converted back to sinus rhythm. Postprocedure orders have been given. Okay the patient is now responsive and moves all extremities on commands. Report dictated by Jose Venegas MD Assessment/Plan: Final diagnosis Atrial fibrillation with a RVR, POA Status post cardioversion 10/07/2024 Essential hypertension CAD Obesity Discharge Instructions: Patient to follow up with human resources executive assistant Dr. Venegas as an outpatient and to return to hospital for condition changes. Patient agreed with the plan and understood the information provided. Home Medications: Reported Medications Mesalamine (Mesalamine) 800 Mg Tablet.dr, 1 TAB PO DAILY for 30 Days, #90 TAB 0 Refills 10/06/24 Aspirin (ASPIRIN 81MG CHEW TAB) 81 Mg Tab.chew, 81 MG PO DAILY, TAB.CHEW 10/05/24 Metoprolol Tartrate (Metoprolol Tartrate) 50 Mg Tablet, 1 TAB PO BID for 30 Days, #60 TAB 0 Refills 10/05/24 Time spent arranging discharge: 31-60 minutes NILESH MARTINEZ MD Oct 07, 2024 10:39
--- NOTE | 2024-10-07 10:43 | NUR ---
DISCHARGE PATIENT W/ CONDITIONAL DISCHARGE FOR TODAY IN THE AFTERNOON- [address] MARTINEZ WAS MADE AWARE & SAID HE WOULD PUT IN THE CONDITIONAL DISCHARGE ORDER. Addendum: 10/07/24 at 1045 by BRANDON ESPINAL RN RN DISCHARGE ORDER IS CONDITIONAL IF THE PATIENT REMAINS IN SINUS RHYTHM POST CARDIOVERSION
--- NOTE | 2024-10-07 16:31 | NUR ---
DR DUKES PLACED CALL TO DR DUKES AT THIS TIME TO INQUIRE IF PATIENT CAN BE DISCHARGED HOME POST CARDIOVERSION, BUT NO ANSWER. LEFT MESSAGE FOR MD PLEASE CALL BACK. Addendum: 10/07/24 at 1654 by BRANDON ESPINAL RN RN 1654 PM PER NATA CAMPA TO DISCHARGE HOME TODAY.
--- NOTE | 2024-10-07 17:05 | NUR ---
DISCHARGE EDUCATION EXPLAINED & GIVEN TO PATIENT IN WRITING AT THIS TIME. ALL QUESTIONS ANSWERED. PT PROVIDED W/ WORK EXCUSE & COUPONS FOR ELIQUIS. BOTH PIV & TELE MONITOR REMOVED AT THIS TIME. PATIENT WILL BE WAITING FOR HER RIDE TO COME PICK HER UP FROM [place], [place].
--- NOTE | 2024-10-07 18:04 | NUR ---
DISCHARGED PATIENT'S RIDE ARRIVED AT THIS TIME. PATIENT DISCHARGED HOME VIA WHEELCHAIR, IN STABLE CONDITION, ACCOMPANIED BY FRIEND.
== END 2024-10-07 18:00 | disposition home or self-care (01) | DRG 309 ==
LOC: EDH 12:08 → EDHIP 15:42 → 2AH 21:10
PROVIDERS: ADMIT Internal Medicine; ATTEND Internal Medicine
PROC: 5A2204Z Restoration of Cardiac Rhythm, Single (ICD-10-PCS; principal; 2024-10-07)
DX: I48.0 Paroxysmal atrial fibrillation (principal); K51.90 Ulcerative colitis, unspecified, without complications; I10 Essential (primary) hypertension; E66.9 Obesity, unspecified; I25.10 Atherosclerotic heart disease of native coronary artery without angina pectoris; Z98.891 History of uterine scar from previous surgery; Z79.82 Long term (current) use of aspirin; Z79.899 Other long term (current) drug therapy; Z90.710 Acquired absence of both cervix and uterus; Z88.5 Allergy status to narcotic agent; Z88.8 Allergy status to other drugs, medicaments and biological substances; Z68.39 Body mass index [BMI] 39.0-39.9, adult
CPT/HCPCS: 36415; 71045; 80048; 80053; 81001; 82550; 83735; 83880; 84484; 85025; 85027; 85610; 92960; 93005; G0378; J0282; J1650; J2250; J3010; J3490; J7060